=== PATIENT | female | born 1955 | race Caucasian/White ===

== ENCOUNTER → 2017-01-02 | Outpatient (CLI) | payer OTHER | LOC: RAD 08:56 | DX: Z12.31 Encounter for screening mammogram for malignant neoplasm of breast (principal) ==

== ENCOUNTER → 2018-03-17 | Outpatient (CLI) | payer OTHER | LOC: RAD 03-15 15:56 | DX: Z12.31 Encounter for screening mammogram for malignant neoplasm of breast (principal) ==

== ENCOUNTER → 2018-04-29 | Outpatient (CLI) | payer OTHER ==
--- NOTE | ~2018-04-29 | 24HR ---
[address] [place] [address] 24 HR ELECTROCARDIOGRAM REPORT Name: CECE LEWIS [id number] Admission: 04/29/18 Attend Phys: Santo Contreras, Discharge: Date of : 51 Date of Service: 04/29/181120 Report #: [id number] THIS REPORT FOR: //name// [facility] Test Date: 2018-04-29 Test Time: 11:21:00 Pat Name: CECE LEWIS Department: Room: Gender: F [employer]: : 1955 Requested By: Santo Contreras Order Number: [id number] Wendi MCKENZIE: Interpretive Statements [email or web address] By: 20 20 Epiphany MD Bela /EPI
== END ==
LOC: CV 10:45
DX: I42.2 Other hypertrophic cardiomyopathy (principal)

== ENCOUNTER → 2019-03-18 | Outpatient (CLI) | payer OTHER | LOC: RAD 08:57 → BC 17:59 → EDSTATUS 18:01 | DX: Z12.31 Encounter for screening mammogram for malignant neoplasm of breast (principal) ==

== ENCOUNTER → 2019-09-07 | Outpatient (CLI) | payer OTHER | LOC: SJCVCIMAG 08:13 | DX: I08.8 Other rheumatic multiple valve diseases (principal); I42.8 Other cardiomyopathies; R00.1 Bradycardia, unspecified ==

== ENCOUNTER → 2019-09-29 | Outpatient (CLI) | payer OTHER | LOC: SJCVC 14:19 | PROVIDERS: ATTEND Internal Medicine | DX: I42.2 Other hypertrophic cardiomyopathy (principal); I10 Essential (primary) hypertension; E78.2 Mixed hyperlipidemia; Z82.49 Family history of ischemic heart disease and other diseases of the circulatory system; Z79.82 Long term (current) use of aspirin; Z79.899 Other long term (current) drug therapy ==

== ENCOUNTER → 2019-11-16 | Outpatient (CLI) | payer OTHER | LOC: SJCVC 15:01 | PROVIDERS: ATTEND Internal Medicine Cardiovascular Disease | DX: I45.10 Unspecified right bundle-branch block (principal); R00.1 Bradycardia, unspecified; R94.31 Abnormal electrocardiogram [ECG] [EKG]; I42.2 Other hypertrophic cardiomyopathy; E78.5 Hyperlipidemia, unspecified; Z79.82 Long term (current) use of aspirin; Z79.899 Other long term (current) drug therapy; Z82.49 Family history of ischemic heart disease and other diseases of the circulatory system ==

== ENCOUNTER → 2020-02-22 | Outpatient (CLI) | payer OTHER | LOC: SJCVC 14:30 | PROVIDERS: ATTEND Internal Medicine Cardiovascular Disease | DX: R94.31 Abnormal electrocardiogram [ECG] [EKG] (principal); I45.10 Unspecified right bundle-branch block; R00.1 Bradycardia, unspecified; I42.2 Other hypertrophic cardiomyopathy; E78.5 Hyperlipidemia, unspecified; Z79.82 Long term (current) use of aspirin; Z79.899 Other long term (current) drug therapy ==

== ENCOUNTER → 2020-03-07 | Outpatient (CLI) | payer OTHER | LOC: LAB 09:02 | PROVIDERS: ATTEND Internal Medicine Cardiovascular Disease | DX: Z01.812 Encounter for preprocedural laboratory examination (principal); Z20.828 Contact with and (suspected) exposure to other viral communicable diseases ==

== ENCOUNTER 2020-03-12 09:01 | Observation (INO) | payer OTHER ==
[2020-03-12] VITALS (11 sets, daily range): BP systolic 107–1125; BP diastolic 50–68
[~2020-03-12] VITALS: Ht 157.5 cm; Wt 66.7 kg
[2020-03-12 07:55] LABS: ABSOLUTE NEUTROPHILS 1.9 thou/uL (1.4-8.2); BASOPHILS 0.9 % (0.0-2.0); EOSINOPHILS 2.1 % (0.0-3.0); HEMATOCRIT 39.3 % (37.0-47.0); HEMOGLOBIN 13.1 gm/dL (12.0-15.0); LYMPHOCYTES 55.8 % (24.0-44.0); MCH 31.3 pg (26.0-34.0); MCHC 33.2 g/dL (28.0-37.0); MCV 94.1 fL (80.0-100.0); MONOCYTES 7.7 % (1.0-8.0); PLATELET COUNT 210 thou/uL (150-400); POLYS 33.5 % (36.0-66.0); RBC 4.18 mil/uL (4.20-5.00); RDW 13.4 % (10.5-14.5); WBC 5.6 thou/uL (4.0-11.0)
[2020-03-12 08:04] LABS: CALCIUM 9.2 mg/dL (8.5-10.1); CREATININE 0.9 mg/dL (0.6-1.0); POTASSIUM 4.1 mmol/L (3.5-5.1)
[2020-03-12 08:11] LABS: ALBUMIN 3.9 g/dL (3.4-5.0); TOTAL BILIRUBIN 0.5 mg/dL (0.2-1.0); TOTAL PROTEIN 7.4 g/dL (6.4-8.2)
[2020-03-12 08:47] LABS: APTT 24.5 Seconds (24.5-32.8)
[~2020-03-12 09:01] MED LIST: ASA81BEC PO; CELEXA 20 MG TA20 MG PO; PRAVACHOL40 MG PO; TOPROL XL50 MG PO; ZYRTEC10 M5 PO
[2020-03-13 05:24] VITALS: BP 114/57
[2020-03-13 07:50] VITALS: BP 115/71
[2020-03-13 09:33] VITALS: BP 115/71
--- NOTE | 2020-03-16 10:43 | P ---
[facility] [place] [address] PROCEDURE REPORT Name: CECE LEWIS RAUL Room #: 213-P [facility] Joselito Buckley#: [id number] Admission: 03/12/20 Attend Phys: John Gusman MD Discharge: 03/13/20 Date of : 51 Report #: [id number] THIS REPORT FOR: cc: Ebony Vergara MD, Nora P. MD Couchonnal, Luis F. MD ~ PROCEDURE: Implantable cardioverter defibrillator implantation. PREOPERATIVE DIAGNOSES: 1. Hypertrophic cardiomyopathy. 2. Nonsustained ventricular tachycardia. POSTOPERATIVE DIAGNOSES: 1. Hypertrophic cardiomyopathy. 2. Nonsustained ventricular tachycardia. HISTORY: The patient is a 64-year-old female with a family history of hypertrophic cardiomyopathy, who herself was recently diagnosed with hypertrophic cardiomyopathy at a radiation monitor showing episodes of nonsustained VT and also had a cardiac MRI showing extensive myocardial fibrosis, placing her at high risk for sudden cardiac . She is here for ICD implantation for primary prevention of sudden cardiac . ANESTHESIA: The patient underwent MAC anesthesia with no anesthesia related complications. DESCRIPTION OF PROCEDURE: The patient underwent informed consent. We discussed the details of the procedure including the risks, which include but not limited to bleeding, infection, vascular damage, cardiac perforation and pneumothorax. She understood these risks and is willing to proceed. The patient was brought to EP laboratory in a fasting and sedated state, prepped and draped in a sterile fashion, underwent venogram showing patency of left axillary vein and received IV antibiotics. Next, I injected lidocaine at the incision site. Incision was made, pocket was created over the prepectoral fascia. Access was obtained twice to left axillary vein using the extrathoracic approach. Sheath positioned using the modified Seldinger technique. Next, a lead was positioned in the right ventricular apex and right atrial appendage, both with adequate pacing and sensing thresholds. Leads were sutured to the prepectoral fascia. Device was connected and tested and found to be functioning normally. Pocket was irrigated with vancomycin. Pocket closed in 2 layers using 2-0 for the deep layer, 3-0 for the middle layer and surgical glue was placed to outer skin layer. The patient awoke neurologically and hemodynamically intact. No complications and no significant bleeding. Implanted device was a Medtronic, model #USMA4R3, serial #[id number]. The atrial lead was a Medtronic model #5076, serial #[id number] and the RV lead was a Medtronic model #6935, 55 cm, serial #[id number]. Atrial lead demonstrated [address] [address] PROCEDURE REPORT Name: CECE LEWIS RAUL Room #: [facility] Joselito MDeanRDean#: [id number] Admission: 03/12/20 Attend Phys: John Gusman MD Discharge: 03/13/20 Date of : 51 Report #: [id number] R-wave of 1.5 millivolts, pacing impedance 532 ohms, pacing threshold 0.75 volts at 0.5 milliseconds. The RV lead demonstrated R-wave of 10.3 millivolts, pacing impedance of 456 ohms and a pacing threshold of 0.5 volts at 0.5 milliseconds. The device was programmed to the DDD 60-130 mode and the VT zone was set at 180-220 beats per minute with 3 rounds of burst followed by 3 rounds of ramp followed by max output shocks. VF zone was set greater than 220 beats per minute with ATP while charging followed by max output shocks. CONCLUSIONS: 1. Successful implantable cardioverter defibrillator implantation. 2. Satisfactory atrial and ventricular pacing and sensing thresholds. <ELECTRONICALLY SIGNED> By: John Gusman MD 03/16/20 [id number] 1423 John Gusman MD /nt
== END 2020-03-13 12:16 | disposition home or self-care (01) ==
LOC: CATH 09:01 → 2N 11:30 → CATH 12:15 → 2N 03-13 12:16
PROVIDERS: ADMIT Internal Medicine Cardiovascular Disease; ATTEND Internal Medicine Cardiovascular Disease
DX: I42.2 Other hypertrophic cardiomyopathy (principal); I47.2 Ventricular tachycardia

== ENCOUNTER → 2020-03-27 | Outpatient (CLI) | payer OTHER | LOC: SJCVC 10:31 | PROVIDERS: ATTEND Internal Medicine | DX: R94.31 Abnormal electrocardiogram [ECG] [EKG] (principal); I45.10 Unspecified right bundle-branch block; I42.2 Other hypertrophic cardiomyopathy; I10 Essential (primary) hypertension; E78.2 Mixed hyperlipidemia; Z95.810 Presence of automatic (implantable) cardiac defibrillator; Z79.82 Long term (current) use of aspirin; Z79.899 Other long term (current) drug therapy ==

== ENCOUNTER → 2020-07-05 | Outpatient (CLI) | payer OTHER | LOC: SJCVC 14:04 | PROVIDERS: ATTEND Internal Medicine Cardiovascular Disease | DX: R94.31 Abnormal electrocardiogram [ECG] [EKG] (principal); I45.10 Unspecified right bundle-branch block; I42.2 Other hypertrophic cardiomyopathy; E78.5 Hyperlipidemia, unspecified; Z95.810 Presence of automatic (implantable) cardiac defibrillator; Z72.89 Other problems related to lifestyle; Z79.82 Long term (current) use of aspirin; Z79.899 Other long term (current) drug therapy ==

== ENCOUNTER → 2020-07-16 | Outpatient (CLI) | payer OTHER | LOC: BC 08:56 | PROVIDERS: ATTEND Family Medicine | DX: Z12.31 Encounter for screening mammogram for malignant neoplasm of breast (principal) ==

== ENCOUNTER → 2020-10-09 | Outpatient (CLI) | payer OTHER | LOC: SJCVC 13:31 | PROVIDERS: ATTEND Internal Medicine | DX: R94.31 Abnormal electrocardiogram [ECG] [EKG] (principal); I42.2 Other hypertrophic cardiomyopathy; I10 Essential (primary) hypertension; E78.2 Mixed hyperlipidemia; E78.5 Hyperlipidemia, unspecified; F32.9 Major depressive disorder, single episode, unspecified; Z95.810 Presence of automatic (implantable) cardiac defibrillator; Z72.89 Other problems related to lifestyle; Z79.82 Long term (current) use of aspirin; Z79.899 Other long term (current) drug therapy ==

== ENCOUNTER → 2021-04-12 | Outpatient (CLI) | payer OTHER | LOC: SJCVCIMAG 07:46 | PROVIDERS: ATTEND Internal Medicine | DX: I08.8 Other rheumatic multiple valve diseases (principal); I42.2 Other hypertrophic cardiomyopathy; E78.5 Hyperlipidemia, unspecified; F32.9 Major depressive disorder, single episode, unspecified; I11.9 Hypertensive heart disease without heart failure; Z95.810 Presence of automatic (implantable) cardiac defibrillator; Z72.89 Other problems related to lifestyle; Z79.82 Long term (current) use of aspirin; Z79.899 Other long term (current) drug therapy ==